=== PATIENT | female | born 1950 | race Caucasian/White ===

== ENCOUNTER 2016-12-14 10:01 | Emergency (ER) | payer MEDICARE, OTHER ==
[~2016-12-14] VITALS: Ht 157.5 cm; Wt 52.3 kg
[2016-12-14 10:07] VITALS: BP 113/79; PULSE 112; RESP 14; O2SAT 98
--- NOTE | 2016-12-14 10:10 | ED.REPORT ---
HPI-General Illness Date of Service Dec 14, 2016 ED Provider: Lars Heaton MD The patient is a 66 year old female with a history of hiatal hernia, polio, and atrial fibrillation on Warfarin s/p mitral valve replacement who presents to the ED via EMS from Urgent Care with chest pain onset gradually four days ago. The pain is described as "heaviness," without radiation. The patient also reports fatigue and diaphoresis. She denies SOB, nausea, vomiting, hematuria, hematochezia, constipation, diarrhea, numbness, weakness, or other symptoms. EMS found the patient in atrial fibrillation with a rate of 110, a BP of 136/71 , and a pulse ox of 97%. She was given Nitro x1 en route, with some relief. Nursing notes indicate the patient experienced shortness of breath but the patient denies this in the interview. Does not seem to get worse w/ exertion. Nursing Notes Stated Complaint: CHEST PAIN Chief Complaint: General Complaint Nursing Notes Reviewed: Yes Allergies: Coded Allergies: hydrocodone (Verified Allergy, Unknown, 12/29/15) General Time Seen by MD: 10:09 Chief Complaint Chest pain Hx Obtained From: Patient Arrived By: Walk-in Sudden in Onset?: No Onset Occurred: 4 days ago Symptom Duration: Since onset Location: : Chest Quality: Heaviness, Painful Severity: Current: Moderate Severity: Maximum: Moderate Pertinent Negative: Relieved by nothing Recent Healthcare: No recent doctor visit Past Medical History Past Medical History Hyperlipidemia Hypertension Aortic stenosis Chronic atrial fibrillation Polio Hiatal hernia Past Surgical History Mitral valve replacement polio Smoking History Current Every Day Smoker Social History Alcohol Use: 1-3 per week Drug Use: Denies drug use Other Social History: Good social support Ambulatory Status Independent Review of Systems Full Review of Systems Constitutional: Reports: Fatigue, Denies: Fever Respiratory: Denies: Non-productive cough, Shortness of breath Cardiovascular: Reports: Chest pain GI: Denies: Constipation, Diarrhea, Hematochezia, Nausea, Vomiting Female: Denies: Hematuria Skin: Reports Diaphoresis Neurologic: Denies: Numbness, Weakness Complete sys rev & neg: except as marked. Physical Exam Vital Signs Vital Signs Date Time Temp Pulse Resp B/P Pulse Ox O2 Delivery O2 Flow Rate FiO2 12/14/16 13:52 36.5 88 114/80 95 Room Air 12/14/16 12:23 36.8 86 18 96/79 97 Room Air 12/14/16 10:07 36.9 112 14 113/79 98 Room Air Initial VS: Reviewed Head / Eyes: Atraumatic, Normocephalic ENT: Conjunctiva normal, No scleral icterus Neck: Supple, Full range of motion Respiratory: Breath sounds normal, Clear to auscultation, No respiratory distress Skin: Warm, Dry, No cyanosis Neurologic: Alert, Oriented, Nonfocal Psychiatric: Mood/affect normal, Behavior normal, Normal thought content General/Constitutional: Awake, Alert Cardiovascular: Heart rate NL, Heart sounds NL Heart Rate / Rhythm: Positive: Irregular rhythm Abdomen: Soft, Non-tender Interpretation & Diagnostics Lab Results Interpretation Result Diagram: 12/14/16 1015 12/14/16 1015 Test 12/14/16 10:15 White Blood Count 8.2th/mm3 (3.8-10.1) Red Blood Count 4.08mil/mm3 (3.90-5.20) Hemoglobin 13.5g/dL (12.0-15.6) Hematocrit 38.2% (35.0-46.0) Mean Corpuscular Volume 93.6fL (81-100) Mean Corpuscular Hemoglobin 33.1pg (27.0-35.0) Mean Corpuscular Hemoglobin Concent 35.3% (32.0-37.0) Red Cell Distribution Width 13.2% (12.3-15.4) Platelet Count 216bil/L (150-400) Neutrophils (%) (Auto) 48.0% (40-74) Lymphocytes (%) (Auto) 35.8% (14-46) Monocytes (%) (Auto) 13.2% (4-12) Eosinophils (%) (Auto) 2.3% (0-5) Basophils (%) (Auto) 0.6% (0-3) Sodium Level 134mEq/L (134-144) Potassium Level 4.4mEq/L (3.5-5.2) Chloride Level 95mEq/L (97-108) Carbon Dioxide Level 22mmol/L (18-29) Blood Urea Nitrogen 28mg/dL (8-27) Creatinine 1.05mg/dL (0.57-1.00) Estimat Glomerular Filtration Rate 75mL/min (>59) Glucose Level 115mg/dL (60-99) Calcium Level 9.7mg/dL (8.5-10.1) Magnesium Level 1.8mg/dL (1.6-2.6) Total Bilirubin 0.4mg/dL (0.0-1.2) Aspartate Amino Transf (AST/SGOT) 33U/L (0-50) Alanine Aminotransferase (ALT/SGPT) 15U/L (0-32) Alkaline Phosphatase 60U/L (25-165) Troponin T 0.010ug/L (0.0-0.011) Total Protein 7.3g/dL (6.4-8.4) Albumin 3.9g/dL (3.4-5.0) ECG Interpretation ECG Interpretation: Atrial fibrillation rate 91 Time: 10:30 Interpreted by: ED physician X-Ray Chest Interpretation Chest Xray Interpretation: IMPRESSION: Very minimal right basilar streaky opacity. This could be quality assurance representative of atelectasis/edema or potentially developing airspace disease such as pneumonia. Dictated by: Missy Segovia M.D. on 12/14/2016 at 9:44 View: Portable, 1 view Interpretation / Wet Read by: Interpret - Radiologist Re-Eval/Medical Decision Med Decision/Clinical Course In summary, 66F p/w 4 days of nonexertional chest pain. Differential includes ACS, PE, PTX, aortic dissection, myocarditis/pericarditis, abdominal etiology such as cholecystitis, MSK pain. Pain has been constant since onset; initial troponin negative. HEART score of 3. EKG demonstrates atrial fibrillation with no acute ischemic changes appreciated. Denies any shortness of breath, not pleuritic - no need for further w/u per Wells score. No evidence of pneumothorax on chest x-ray or exam. Neither clinical presentation, exam, or EKG seem c/w pericarditis or myocarditis. No abd TTP or pain. Given her risk, however low for acute cardiac event, I discussed admitting her for observation and possible provocative testing. However, on reassessment, patient states that she feels better and would like to leave. Discussed the risks of doing so before completion of workup, though patient was undeterred. Given the chronicity of her complaint, availability of close followup, and her insistence , I think this would be fine, however she was counselled on very careful return precautions and the need for close, prompt outpt f/u. Patient agreeable to plan , no further questions. Source of Hx: Old records Time of Eval: 13:19 Patient Status: Condition improved Counseled Regarding: Diagnosis, Lab results, Need for follow-up, When/why to return to ED Discharge & Departure Primary Impression: Chest pain Chest pain type: unspecified Qualified Code: R07.9 - Chest pain, unspecified Disposition: Home Discharge Condition All VS Reviewed: Yes Condition: Improved Patient Instructions: Chest Pain (ED) Additional Instructions: Thank you for entrusting us with your care. Your first heart enzyme test was negative, however, you have declined repeat labs and evaluation today to complete our workup. Please call your primary care provider on Saturday for a follow-up appointment, as discussed. This is imperative. Talk to them about a cardiology referral and a stress test. Return to the ER with any new or worsening symptoms including shortness of breath, worsening pain, or fever. Referrals: Grupo Liang MD (PCP) [place] Attestation Portions of this note were transcribed by Natasha Anderson. I, Dr. Heaton, personally performed the history, physical exam, and medical decision-making; I reviewed and confirmed the accuracy of the information in the transcribed note. Signed by: Yolanda Boo, 12/14/2016, 14:44 copies to: Grupo Liang MD, William B MD Dec 14, 2016 10:10 NATASHA ANDERSON Dec 14, 2016 10:48
[2016-12-14 10:29] LABS: BASOPHILS % (AUTO) 0.6 % (0-3); EOSINOPHILS % (AUTO) 2.3 % (0-5); MONOCYTES % (AUTO) 13.2 % (4-12); Mean Corpuscular Hemoglobin 33.1 pg (27.0-35.0); Mean Corpuscular Volume 93.6 fL (81-100); Platelet Count 216 bil/L (150-400)
--- NOTE | 2016-12-14 10:46 | DRSVH ---
PROCEDURE: X-RAY CHEST ONE VIEW, PORTABLE ([id number]) INDICATIONS: chest pain TECHNIQUE: One view of the chest was acquired. COMPARISON: [facility], CR, XR CHEST 1VW (PORTABLE), 12/29/2015, 15:14. FINDINGS: Surgical changes and devices: Sternal wires and valve replacement are noted. Lungs and pleura: There is a very minimal appearance of right basilar streaky opacity. Mediastinum: Mediastinal contours appear normal. Heart size is normal. Bones and chest wall: No suspicious bony lesions. Overlying soft tissues appear unremarkable. IMPRESSION: Very minimal right basilar streaky opacity. This could be insurance service representative of atelectasis/e yovana or potentially developing airspace disease such as pneumonia. Dictated by: Missy Segovia M.D. on 12/14/2016 at 9:44 Approved by: Missy Segovia M.D. on 12/14/2016 at 9:44
[2016-12-14 11:25] LABS: Magnesium 1.8 mg/dL (1.6-2.6); TROPONIN T 0.01 ug/L (0.0-0.011)
[2016-12-14 12:23] VITALS: BP 96/79; PULSE 86; RESP 18; O2SAT 97
[2016-12-14 13:52] VITALS: BP 114/80; PULSE 88; O2SAT 95
== END 2016-12-14 13:53 | disposition home or self-care (01) ==
LOC: EDBD 10:01 → SED 10:01 → EDUNIT# 10:01 → SED 13:53
DX: R07.89 Other chest pain (principal); R53.83 Other fatigue; R61 Generalized hyperhidrosis; I48.91 Unspecified atrial fibrillation; E78.5 Hyperlipidemia, unspecified; I10 Essential (primary) hypertension; K44.9 Diaphragmatic hernia without obstruction or gangrene; F17.200 Nicotine dependence, unspecified, uncomplicated; Z95.2 Presence of prosthetic heart valve; Z86.12 Personal history of poliomyelitis; Z79.01 Long term (current) use of anticoagulants; Z88.5 Allergy status to narcotic agent
CPT/HCPCS: 36415; 71010; 80053; 83735; 84484; 85025; 93005; 99285; G0463